=== PATIENT | male | born 1975 | race Caucasian/White ===

== ENCOUNTER 2017-01-22 13:30 | Emergency (ER) | payer OTHER ==
--- NOTE | 2017-01-22 13:35 | PHYS DOC ---
Adult General Chief Complaint Chief Complaint: HAND PROBLEM HPI HPI Patient is a 41 year old male who presents with injury to his left thumb yesterday with a drill bit. He is unsure his last tetanus shot was. He is scheduled and might be getting infected. He denies any fevers or chills at this time. He is right-handed. Review of Systems Review of Systems Constitutional: Denies fever or chills [] Eyes: Denies change in visual acuity, redness, or eye pain [] HENT: Denies nasal congestion or sore throat [] Respiratory: Denies cough or shortness of breath [] Cardiovascular: No additional information not addressed in HPI [] GI: Denies abdominal pain, nausea, vomiting, bloody stools or diarrhea [] : Denies dysuria or hematuria [] Musculoskeletal: Denies back pain, positive for distal thumb pain Integument: Denies rash or skin lesions [] Neurologic: Denies headache, focal weakness or sensory changes [] Endocrine: Denies polyuria or polydipsia [] Physical Exam Physical Exam Constitutional: Well developed, well nourished, no acute distress, non-toxic appearance. [] HENT: Normocephalic, atraumatic, bilateral external ears normal, oropharynx moist, no oral exudates, nose normal. [] Eyes: PERRLA, EOMI, conjunctiva normal, no discharge. [] Neck: Normal range of motion, no tenderness, supple, no stridor. [] Cardiovascular:Heart rate regular rhythm, no murmur [] Lungs & Thorax: Bilateral breath sounds clear to auscultation [] Abdomen: Bowel sounds normal, soft, no tenderness, no masses, no pulsatile masses. [] Skin: Warm, dry, no erythema, no rash. [] Back: No tenderness, no CVA tenderness. [] Extremities: Tender palpation with a puncture wound over the lateral distal thumb The nailbed that looks like it is through and through, no cyanosis, no clubbing , ROM intact, no edema. [] Neurologic: Alert and oriented X 3, normal motor function, normal sensory function, no focal deficits noted. [] Psychologic: Affect normal, judgement normal, mood normal. [] EKG EKG [] Radiology/Procedures Radiology/Procedures [address] [address] IMAGING REPORT Signed PATIENT: GITA LOPEZ ACCOUNT: [id number] : 1975 LOCATION: ER AGE: 41 SEX: M EXAM STATUS: REG ER ORD. PHYSICIAN: CARMEN GUTIÉRREZ MD REASON: thumb injury PROCEDURE: HAND LEFT 3V Indication thumb injury yesterday. Pain. AP oblique and lateral views of the left hand were obtained. No acute bony finding is seen. There is possible subluxation at the first carpal metacarpal joint. The finding is not certain and correlation with physical exam advised. DICTATED AND SIGNED BY: APOLINAR HEATH MD DATE: 01/22/17 1401 CC: CARMEN GUTIÉRREZ MD; DEMI BROWN DO ~ Impressions: Thumb injury Course & Med Decision Making Course & Med Decision Making Pertinent Labs and Imaging studies reviewed. (See chart for details) X-ray did not show any acute abnormality's. He does not have any tenderness over his first MCP joint, tetanus was updated. He is being discharged with antibiotics, return precautions given. Dragon Disclaimer Dragon Disclaimer This chart was dictated in whole or in part using Voice Recognition software in a busy, high-work load, and often noisy Emergency Department environment. It may contain unintended and wholly unrecognized errors or omissions. Departure Departure: Impression: Primary Impression: Thumb injury Disposition: HOME, SELF-CARE Condition: STABLE Referrals: DEMI BROWN DO (PCP) Patient Instructions: Puncture Wound Additional Instructions: The x-ray did not show anything broken. He will need to soak his thumb to 3 times a day in Epsom salt and warm water. Use triple anabolic ointment on the outside of the thumb and keep it wrapped with a Band-Aid. You will need take antibiotics for the next 7 days. Return ER or follow-up with primary care physician if you notice any signs of infection such as redness, swelling, or a purulent discharge. Scripts Amoxicillin/Potassium Clav (AUGMENTIN 875-125 TABLET) 1 Each Tablet 1 TAB PO BID, #14 TAB Prov: CARMEN GUTIÉRREZ MD 01/22/17 Problem Qualifiers Primary Impression: Thumb injury Encounter type: initial encounter Laterality: left Qualified Codes: S69.92XA - Unspecified injury of left wrist, hand and finger(s), initial encounter CARMEN GUTIÉRREZ MD Jan 22, 2017 13:35
--- NOTE | 2017-01-22 14:08 | RAD ---
Indication thumb injury yesterday. Pain. AP oblique and lateral views of the left hand were obtained. No acute bony finding is seen. There is possible subluxation at the first carpal metacarpal joint. The finding is not certain and correlation with physical exam advised.
[2017-01-22] MEDS ORDERED: DIPHTH,PERTUSS(ACELL),TET TOX 0.5 ML DISP.SYRIN. VAX IM ONE (14:15)
[2017-01-22] MEDS ORDERED: AMOX1TAB61 PO (14:25)
[2017-01-22 14:30] VITALS: BP 97/61
== END 2017-01-22 14:30 | disposition home or self-care (01) ==
LOC: ER 13:30
DX: S69.92XA Unspecified injury of left wrist, hand and finger(s), initial encounter (principal); W29.8XXA Contact with other powered hand tools and household machinery, initial encounter; Y93.89 Activity, other specified; Y99.8 Other external cause status; Y92.89 Other specified places as the place of occurrence of the external cause
CPT/HCPCS: 73130; 90471; 90715; 99284-25